=== PATIENT | female | born 1995 | race Caucasian/White ===

== ENCOUNTER 2018-01-26 17:02 | Observation (INO) | payer BC ==
[2018-01-26] MEDS ORDERED: 0.9 % SODIUM CHLORIDE 1,000 ML IV ONE (17:08)
[2018-01-26] MEDS ORDERED: ONDANSETRON HCL/PF 4 MG/ 2ML VIAL IVP ONE (17:09)
[2018-01-26] MEDS ORDERED: ACETAMINOPHEN 500 MG TABLET PO PRN (20:41)
[2018-01-26] MEDS ORDERED: ONDANSETRON HCL/PF 4 MG/ 2ML VIAL IVP PRN (20:41)
[2018-01-26] MEDS ORDERED: 0.9 % SODIUM CHLORIDE 100 ML IV ONE (20:51)
[2018-01-26] MEDS ORDERED: PANTOPRAZOLE SODIUM INJ. 40 MG VIAL ONE (20:51)
[2018-01-26] MEDS: PANTOPRAZOLE SODIUM 40 MG in 0.9 % SODIUM CHLORIDE 50 ML IV SCH (21:00)
[2018-01-26] MEDS: 0.9 % SODIUM CHLORIDE 1,000 ML IV SCH (21:00)
[2018-01-26 22:16] VITALS: BMI 19.8
[2018-01-27] MEDS: 0.9 % SODIUM CHLORIDE 1,000 ML IV SCH (07:30)
[2018-01-27 08:12] LABS: BASOPHILS % 0.4 (0.0-1.5); EOSINOPHILS % 1.7 % (0.0-6.8); MONOCYTES % 3.5 % (0.0-11.0)
[2018-01-27 08:13] LABS: eGFR (Non-African) > 60
--- NOTE | 2018-01-27 08:19 | Discharge Summary ---
Discharge Summary - Discharge Sumary History of Present Illness: Patient is a 22-year-old white female that presented to the clinic yesterday with several medical complaints. Approx. 1 week ago Wednesday patient states that she woke up with headache and feeling light headed. The following day around 11a she was extremely lightheaded and dizzy and started vomiting until around 5p. She took some Zofran and Nauzene which seemed to help. Wednesday she felt better but then developed some stabbing pain in her throat and chest with abdominal pain. Yesterday she was able to eat some toast but has not had anything today due to nausea. Patient still feels light headed and dizzy with position changes. She also has had a runny nose and postnasal drainage. Patient was admitted observation last night after being seen in the clinic for dehydration. Patient states that she has voided- nausea has improved and no vomiting since arrival. Will give patient a script for Zofran 4mg ODT to take as needed. Instructed to increase water intake and plenty of rest. She may alternate Tylenol and Ibuprofen as needed for fever/discomfort. Additional Instructions: Will give patient a script for Zofran 4mg ODT to take as needed. Instructed to increase water intake and plenty of rest. She may alternate Tylenol and Ibuprofen as needed for fever/discomfort. Condition at Discharge: Stable Home Medications: Ambulatory Orders Medication Instructions Recorded Acetaminophen [Tylenol Extra 500 mg PO Q4 PRN tablet 01/27/18 Strength] Colestipol HCl [Colestid] 1 gm PO BID 01/27/18 Medroxyprogesterone Acetate 150 mg IM Q3M 01/27/18 Mirtazapine 30 mg PO DAILY 01/27/18 Ondansetron HCl Rapdis [Zofran Odt] 4 mg PO Q8 PRN #30 tab 01/27/18 Sertraline HCl 50 mg PO DAILY 01/27/18 Consultations this Visit: None Procedures this Visit: None Allergies/Adverse Reactions: Allergies Allergy/AdvReac Type Severity Reaction Status Date / Time No Known Allergies Allergy Verified 01/26/18 18:33 Discharge Summary: Patient seems to be doing better this morning. Labs are WNL, she has voided, and has not vomited since arrival. She received 1 dose of IV Zofran. She states that nausea has improved- will give patient a script for Zofran 4mg ODT to take as needed. Instructed to increase water intake and plenty of rest. She may alternate Tylenol and Ibuprofen as needed for fever/discomfort. - Final Diagnosis (1) Dehydration Right or Left: Right (2) Nausea & vomiting Right or Left: Right
[2018-01-27] MEDS ORDERED: PANTOPRAZOLE SODIUM INJ. 40 MG VIAL ONE (08:48)
[2018-01-27] MEDS: PANTOPRAZOLE SODIUM 40 MG in 0.9 % SODIUM CHLORIDE 50 ML IV SCH (08:52)
[2018-01-27 10:42] VITALS: BP 124/66
--- NOTE | 2018-01-27 12:25 | History and Physical Report ---
History of Present Illnes - History of Present Illness Reason for Visit: Nausea and vomiting History of Present Illness: Patient is a 22-year-old white female that presented to the clinic with several medical complaints. Approx. 1 week ago Wednesday patient states that she woke up with headache and feeling light headed. The following day around 11a she was extremely lightheaded and dizzy and started vomiting until around 5p. She took some Zofran and Nauzene (OTC) which seemed to help. Wednesday she felt better but then developed some stabbing pain in her throat and chest with abdominal pain. Yesterday she was able to eat some toast but has not had anything today due to nausea. Patient still feels light headed and dizzy with position changes. She also has had a runny nose and postnasal drainage. Patient was sent to the hospital as an outpatient to receive 2 L of NS and labs drawn including CBC & CMP. 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 denies: Addictions Musculoskeletal: denies: Chronic low back pain Rheumatologic: denies: Fibromyalgia Infectious Disease: denies: Bacterial vaginosis, [place], Gonorrhea, HIV ENT: denies: Sinusitis Renal/: denies: Chronic renal insuff Endocrine: denies: Diabetes Dermatology: denies: Eczema - Past Surgical History Past Surgical History: Cholecystectomy, Other (Bivins teeth) - Past Social History Smoke: No Alcohol: None Drugs: None Lives: With Family Domestic Violence: Negative - Health Maintenance Health Maintenance: Tetanus Influenza Vaccine: Current for this Influenza Season Pneumonia Vaccine: No Resuscitation Status: Resusciation Status Resuscitation Status Full Code - Unable to Obtain History Unable to Obtain: No Review of Systems - Review of Systems Constitutional: Weakness. negative: Fever, Chills Eyes: negative: pain, vision change ENT: Nose Discharge, Throat Pain. negative: Ear Pain, Ear Discharge Respiratory: negative: Cough, Shortness of Breath Cardiovascular: Chest Pain (Describes as sharp- believes it caused by vomiting), Light Headedness Gastrointestinal: Nausea, Vomiting, Abdominal Pain (sharp). negative: Diarrhea Genitourinary: Other (Has not voided much). negative: Dysuria Musculoskeletal: negative: Neck Pain, Shoulder Pain Skin: negative: Rash Neurological: Weakness. negative: Seizures - Medications/Allergies Allergies/Adverse Reactions: Allergies Allergy/AdvReac Type Severity Reaction Status Date / Time No Known Allergies Allergy Verified 01/26/18 18:33 Home Medications: Home Medications Colestipol HCl [Colestid] 1 gm PO BID 01/27/18 Medroxyprogesterone Acetate 150 mg IM Q3M 01/27/18 Mirtazapine 30 mg PO DAILY 01/27/18 Sertraline HCl 50 mg PO DAILY 01/27/18 Current Inpatient Medications: Zofran 4mg IV Exam - Exam Vital Signs: Vital Signs (72 hours) 01/26/18 01/27/18 01/27/18 20:34 00:34 04:00 Temperature 98.5 F 98.2 F 99.4 F Pulse Rate [ 95 H 97 H 78 Pulse ox] Respiratory 18 18 18 Rate Blood Pressure 104/54 110/58 99/61 [Right Arm] O2 Sat by Pulse 99 97 Oximetry 01/27/18 01/27/18 08:14 10:00 Temperature 99.0 F 99.0 F Pulse Rate [ 68 68 Pulse ox] Respiratory 18 Rate Blood Pressure 124/66 124/66 [Right Arm] O2 Sat by Pulse 99 99 Oximetry General: Alert, Oriented to Person, Cooperative, Mild distress HEENT: Atraumatic, PERRLA, EOMI. No: Mouth Mucous membr. moist/[place] (lips are dry, mucous membranes are dry) Neck: Normal Range of Motion Lungs: Clear to auscultation, Normal air movement, Speaks full Sentences Cardiovascular: Normal S1, Normal S2, Tachycardia Murmur: No: Systolic Murmur, Diastolic Murmur Abdomen: Normal bowel sounds, Soft, No tenderness Integumentary: Warm, Dry, Pale Extremities: No clubbing, No cyanosis, Normal pulses Neurological: Normal gait, Normal speech, Strength Equal Bilat, Sensation intact Psych/Mental Status: Mental status NL, Appropriate Affect - Laboratory Results Laboratory Results: Laboratory Results 01/26/18 01/26/18 18:25 18:25 WBC 7.40 RBC 4.49 Hgb 13.9 Hct 40.8 MCV 91.0 MCH 31.0 MCHC 34.1 RDW 12.2 Plt Count 203 Neut % (Auto) 68.1 Lymph % (Auto) 26.3 [place] % (Auto) 3.5 Eos % (Auto) 1.7 Baso % (Auto) 0.4 Neut # (Auto) 5.0 Lymph # (Auto) 1.9 [place] # (Auto) 0.3 Eos # (Auto) 0.1 Baso # (Auto) 0.0 Sodium 145 Potassium 3.6 Chloride 105 Carbon Dioxide 21 L BUN 13 Creatinine 0.70 Estimated Creat Clear 137 Est GFR ( Amer) > 60 Est GFR (Non-Af Amer) > 60 Glucose 79 Calcium 9.2 Total Bilirubin 0.8 AST 23 ALT 28 Alkaline Phosphatase 73 Total Protein 8.4 H Albumin 4.7 Assessment/Plan - Assessment/Plan (1) Dehydration Status: Acute Assessment: Patient has had n/v- lips and mucous membranes are dry- patient is tachycardic Plan: Will admit patient observation for IV fluids and treatment of n/v with Zofran IV (2) Nausea & vomiting Status: Acute Qualifiers: Vomiting type: unspecified Vomiting Intractability: non-intractable Qualified Code(s): R11.2 - Nausea with vomiting, unspecified Assessment: Patient had one day of frequent vomiting but has been unable to eat or drink d/t nausea Plan: Will treat N & V with IVF & IV Zofran VTE Assessment - RISK FACTOR SCORE VTE RISK FACTOR SCORES: OTHER - RISK VTE LOW RISK: SCORE OF 1 OR LESS (RISK PROXIMAL DVT 0.4%) NO PROPHYLAXIS NEEDED
== END 2018-01-27 10:50 | disposition home or self-care (01) ==
LOC: OUT 17:02 → SOUTH 20:16
PROVIDERS: ADMIT Family Medicine; ATTEND Family Medicine
DX: E86.0 Dehydration (principal); R11.2 Nausea with vomiting, unspecified
CPT/HCPCS: 80053; 85025; 96360; 96361; 96375; G0378; J2405; J7030; 99217; 99218; S1016

== ENCOUNTER 2018-10-13 09:13 | Outpatient (CLI) | payer BC ==
--- NOTE | 2018-10-13 12:10 | Diagnostic Imaging Report ---
ANDREIA CHAUHAN [facility] [id number] [facility] [address] [place] [address]. [id number] Report Submission Date: Oct 13, 2018 11:22:24 AM CDT Patient Study Name: CHAPITO WANG Date: Oct 13, 2018 10:15:58 AM CDT Modality Type: DX Gender: F Description: C SPINE 4 VIEWS OR MORE : 97 Institution: [facility] Physician: ANDREIA CHAUHAN Examination: Cervical spine History: CHRONIC NECK PAIN Comparison exams: None available Findings: 6 views of the cervical spine demonstrate normal height and alignment. No anterior compression. No abnormal listhesis. Oblique views without neuroforaminal narrowing. No odontoid abnormality. No prevertebral abnormality Impression: No acute osseous abnormality Electronically signed on Oct 13, 2018 11:22:24 AM CDT by: Fortino FLAHERTY
== END 2018-10-13 09:43 ==
LOC: OUT 09:13
PROVIDERS: ATTEND Chiropractor
DX: M99.05 Segmental and somatic dysfunction of pelvic region (principal); M99.06 Segmental and somatic dysfunction of lower extremity; M70.62 Trochanteric bursitis, left hip; M47.27 Other spondylosis with radiculopathy, lumbosacral region; M47.21 Other spondylosis with radiculopathy, occipito-atlanto-axial region
CPT/HCPCS: 72050; 99202

== ENCOUNTER 2018-11-10 10:27 | Outpatient (CLI) | payer BC ==
[2018-11-10 11:31] LABS: BASOPHILS % 0.5 % (0.0-1.5); NEUTROPHILS # 3.2 # k/uL (1.4-7.7)
[2018-11-10 11:45] LABS: eGFR (Non-African) > 60
== END 2018-11-10 11:00 ==
LOC: OUT 10:27
PROVIDERS: ATTEND Nurse Practitioner Family
DX: M41.9 Scoliosis, unspecified (principal)
CPT/HCPCS: 36415; 80053; 85025; 99213

== ENCOUNTER 2018-11-14 11:38 | Day surgery (SDC) | payer BC ==
[~2018-11-14 11:38] MED LIST: DEXAMETHASONE SODIUM PHOSPHATE 10 MG/ML VIAL ONE; KETOROLAC TROMETHAMINE 30 MG/1ML VIAL ONE; LACTATED RINGERS 1,000 ML IV.SOLN IV ONE; LIDOCAINE HCL 2% PF 100MG/5ML VIAL IJ ONE; MIDAZOLAM HCL 2 MG/2 ML VIAL ONE; ONDANSETRON HCL/PF 4 MG/ 2ML VIAL ONE; PROPOFOL 200 MG/20 ML VIAL IV ONE; SEVOFLURANE 250 ML LIQUID IH ONE; fentaNYL CITRATE/PF 100 MCG/2 ML INJ. ONE
== END 2018-11-14 14:05 | disposition home or self-care (01) ==
LOC: OPSURG 11:38
PROVIDERS: ATTEND Chiropractor
DX: M99.05 Segmental and somatic dysfunction of pelvic region (principal); M70.62 Trochanteric bursitis, left hip; M99.06 Segmental and somatic dysfunction of lower extremity; M47.21 Other spondylosis with radiculopathy, occipito-atlanto-axial region; M47.814 Spondylosis without myelopathy or radiculopathy, thoracic region
CPT/HCPCS: 22505; 27198; 27275; J1885; J2001; J2250; J2405; J2704; J3010; J7120

== ENCOUNTER 2018-11-15 11:21 | Day surgery (SDC) | payer BC ==
[~2018-11-15 11:21] MED LIST changes: -SEVOFLURANE 250 ML LIQUID IH ONE
== END 2018-11-15 14:40 | disposition home or self-care (01) ==
LOC: OPSURG 11:21
PROVIDERS: ATTEND Chiropractor
DX: M99.05 Segmental and somatic dysfunction of pelvic region (principal); M70.62 Trochanteric bursitis, left hip; M99.06 Segmental and somatic dysfunction of lower extremity; M47.21 Other spondylosis with radiculopathy, occipito-atlanto-axial region; M47.814 Spondylosis without myelopathy or radiculopathy, thoracic region
CPT/HCPCS: 22505; 27275; J1885; J2001; J2250; J2405; J2704; J3010; J7120; 27198

== ENCOUNTER 2018-11-16 10:41 | Day surgery (SDC) | payer BC ==
[~2018-11-16 10:41] MED LIST changes: +SEVOFLURANE 250 ML LIQUID IH ONE
== END 2018-11-16 12:55 | disposition home or self-care (01) ==
LOC: OPSURG 10:41
PROVIDERS: ATTEND Chiropractor
DX: M99.05 Segmental and somatic dysfunction of pelvic region (principal); M99.06 Segmental and somatic dysfunction of lower extremity; M47.21 Other spondylosis with radiculopathy, occipito-atlanto-axial region; M47.814 Spondylosis without myelopathy or radiculopathy, thoracic region; M70.62 Trochanteric bursitis, left hip
CPT/HCPCS: 22505; 27198; 27275; J1885; J2001; J2250; J2405; J2704; J3010; J7120